=== PATIENT | female | born 1935 | race Caucasian/White ===

== ENCOUNTER → 2017-01-25 | Outpatient (CLI) | payer MEDICAID, OTHER | END | disposition home or self-care (01) | LOC: ROC 08:52 | PROVIDERS: ATTEND Radiology Radiation Oncology | DX: Z08 Encounter for follow-up examination after completed treatment for malignant neoplasm (principal); D33.3 Benign neoplasm of cranial nerves | CPT/HCPCS: 99213; G0463 ==

== ENCOUNTER 2017-12-12 09:45 | Observation (INO) | payer OTHER, MEDICAID ==
[~2017-12-12] VITALS: Ht 162.6 cm; Wt 95.6 kg
[2017-12-12] MEDS ORDERED: LIDOCAINE/PF 1%, 30ML ONE (10:31)
[2017-12-12] MEDS ORDERED: BACITRACIN ZINC OINT 500U/GM, 0.9 GM ONE (10:31)
[2017-12-12] MEDS ORDERED: MICROFIBRILLAR COLLAGEN 70X35X1 DRESSING ONE (10:31)
[2017-12-12] MEDS ORDERED: EPINEPHRINE 1 MG/ML, 1ML ONE (10:32)
[2017-12-12] MEDS ORDERED: BACITRACIN OINT 500U/GM, 15 GM ONE (10:33)
[2017-12-12] MEDS ORDERED: LOSA50TA6 PO (10:34)
[2017-12-12] MEDS ORDERED: CHOL200074 PO (10:34)
[2017-12-12] MEDS ORDERED: CHLO25TA PO (10:34)
[2017-12-12] MEDS ORDERED: LEVO75TA5 PO (10:34)
[2017-12-12] MEDS ORDERED: CYAN250013 HOMEMISC (10:34)
[2017-12-12] MEDS ORDERED: FENTANYL PF 250 MCG/5ML ONE (10:36)
[2017-12-12] MEDS ORDERED: LIDOCAINE-MPF 1%, 2ML ONE (10:40)
[2017-12-12] MEDS ORDERED: LACTATED RINGERS 1,000 ML IV SCH ×3 (10:51→21:30)
[2017-12-12] MEDS ORDERED: [UNRECOGNIZED DRUG - OTHER] PO (10:51)
[2017-12-12 10:56] VITALS: BP 149/94
[2017-12-12 11:19] LABS: ALANINE AMINOTRANSFERASE 30 U/L (12-78); ALBUMIN 3.8 g/dL (3.4-5.0); ANION GAP 9 mmol/L (5-15); CALCIUM 11.3 mg/dL (8.5-10.1); CHLORIDE 106 mmol/L (98-107)
[2017-12-12 11:21] LABS: ALKALINE PHOSPHATASE 62 U/L (45-117); BILIRUBIN,TOTAL 0.9 mg/dL (0.2-1.0); TOTAL PROTEIN 8.4 g/dL (6.4-8.2)
[2017-12-12] MEDS ORDERED: MIDAZOLAM 1 MG/ML, 2ML ONE (11:30)
[2017-12-12] MEDS ORDERED: SUCCINYLCHOLINE 20 MG/ML, 10ML ONE (12:26)
[2017-12-12] MEDS ORDERED: PROPOFOL 10 MG/ML, 20ML ONE ×2 (12:26)
[2017-12-12] MEDS ORDERED: CEFAZOLIN 1,000 MG ONE ×2 (12:26)
[2017-12-12] MEDS ORDERED: FENTANYL PF 100 MCG/2ML IV PRN (13:00)
[2017-12-12] MEDS ORDERED: MIDAZOLAM 1 MG/ML, 2ML IV PRN (13:00)
[2017-12-12] MEDS ORDERED: PROMETHAZINE 25 MG/ML, 1ML IV PRN (13:00)
[2017-12-12] MEDS ORDERED: morphine SULFATE 10 MG/ML, 1ML IV PRN (13:00)
[2017-12-12] MEDS ORDERED: PROMETHAZINE 12.5 MG SUPP PR PRN (13:00)
[2017-12-12] MEDS ORDERED: ONDANSETRON 2MG/ML, 2ML IVPush PRN (13:00)
[2017-12-12] MEDS ORDERED: LABETALOL 5MG/ML, 20ML IV PRN (13:00)
[2017-12-12] MEDS ORDERED: LORazepam 2 MG/ML, 1ML IVPush PRN (13:00)
[2017-12-12] MEDS ORDERED: EPHEDRINE 50 MG/ML, 1ML IVPush PRN (13:00)
[2017-12-12] MEDS ORDERED: FENTANYL PF 100 MCG/2ML ONE ×2 (13:09→14:06)
[2017-12-12 13:21] LABS: 10MIN %DROP IOPTH 71 %; 5MIN %DROP IOPTH 65 %; IOPTH BASELINE 516 pg/mL
[2017-12-12] MEDS ORDERED: ONDANSETRON 2MG/ML, 2ML IV PRN (15:30)
[2017-12-12] MEDS ORDERED: MORPHINE SULFATE 4 MG/ML, 1ML IV PRN (15:30)
[2017-12-12] MEDS ORDERED: ONDANSETRON ODT 4 MG PO PRN (15:30)
[2017-12-12] MEDS ORDERED: OXYcodone/APAP 5/325MG TABLET PO PRN (15:30)
[2017-12-12 19:00] VITALS: BP 104/59
[2017-12-12] MEDS ORDERED: ACETAMINOPHEN 325 MG TABLET PO PRN (21:00)
[2017-12-12] MEDS ORDERED: CEFAZOLIN PMX 1GM/50ML 50 ML IV SCH (21:00)
[2017-12-12 23:48] VITALS: BP 104/57
[2017-12-13 02:51] VITALS: BP 128/61
[2017-12-13 05:28] LABS: CALCIUM 10.2 mg/dL (8.5-10.1)
[2017-12-13] MEDS ORDERED: LEVOTHYROXINE 75 MCG TABLET PO SCH (06:00)
[2017-12-13 06:35] VITALS: BP 123/80
[2017-12-13] MEDS ORDERED: CHLORTHALIDONE 25 MG TABLET PO SCH (09:00)
[2017-12-13] MEDS ORDERED: CHOLECALCIFEROL 1,000 UNIT TABLET PO SCH (09:00)
[2017-12-13] MEDS ORDERED: CYANOCOBALAMIN 1,000 MCG TABLET PO SCH (09:00)
[2017-12-13] MEDS ORDERED: LOSARTAN 50MG TABLET PO SCH (09:00)
== END 2017-12-13 11:00 | disposition home or self-care (01) ==
LOC: OUT 09:45 → 4NOR 14:37 → INTOOBSV 14:43 → 4NOR 14:43 → OUT 15:10 → DCLOUNGE 12-13 10:42
PROVIDERS: ADMIT Otolaryngology; ATTEND Otolaryngology
DX: D35.1 Benign neoplasm of parathyroid gland (principal); E07.9 Disorder of thyroid, unspecified; E04.2 Nontoxic multinodular goiter
CPT/HCPCS: 36415; 60210; 80053; 82310; 83970; 88305; 88307; 88331; 88333; 93005; 96365; C1729; G0378; J0171; J0330; J0690; J2250; J2704; J3010; J3490; J7120

== ENCOUNTER 2018-02-19 12:03 | Day surgery (SDC) | payer OTHER, MEDICAID ==
[~2018-02-19] VITALS: Ht 162.6 cm; Wt 92.9 kg
[~2018-02-19 12:03] MED LIST: BUPIVACAINE 0.25% ONE; CHLO25TA PO; CHOL200074 PO; CYAN250013 HOMEMISC; EPINEPHRINE 1 MG/ML, 1ML ONE; LEVO75TA5 PO; LOSA50TA6 PO; NEOMY/POLYMYXIN B GU IRR. 1 ML IRRIG ONE; [UNRECOGNIZED DRUG - OTHER] PO
[2018-02-19] MEDS ORDERED: LACTATED RINGERS 1,000 ML IV SCH (12:42)
[2018-02-19] MEDS ORDERED: PLEASE ENTER HEIGHT AND WEIGHT MC SCH (13:00)
[2018-02-19] MEDS ORDERED: LIDOCAINE-MPF 1%, 2ML INFIL ONE (13:00)
[2018-02-19 13:18] VITALS: BP 151/100
[2018-02-19] MEDS ORDERED: PROPOFOL 50 ML ONE ×2 (14:04→14:40)
[2018-02-19] MEDS ORDERED: DEXAMETHASONE 4 MG/ML, 1ML ONE (14:21)
[2018-02-19] MEDS ORDERED: PROPOFOL 10 MG/ML, 20ML ONE (14:21)
[2018-02-19] MEDS ORDERED: CEFAZOLIN 1,000 MG ONE ×2 (14:21)
[2018-02-19] MEDS ORDERED: ONDANSETRON 2MG/ML, 2ML ONE ×2 (14:21)
[2018-02-19] MEDS ORDERED: FENTANYL PF 100 MCG/2ML ONE ×2 (14:21→15:09)
[2018-02-19] MEDS ORDERED: PROCHLORPERAZINE 5 MG/ML, 2ML IV PRN (15:00)
[2018-02-19] MEDS ORDERED: EPHEDRINE 50 MG/ML, 1ML IM PRN (15:00)
[2018-02-19] MEDS ORDERED: PROMETHAZINE 25 MG/ML, 1ML IV PRN (15:00)
[2018-02-19] MEDS ORDERED: DIPHENHYDRAMINE 50 MG/ML, 1ML IM PRN (15:00)
[2018-02-19] MEDS ORDERED: ONDANSETRON ODT 8 MG PO PRN (15:00)
[2018-02-19] MEDS ORDERED: MIDAZOLAM 1 MG/ML, 2ML IV PRN (15:00)
[2018-02-19] MEDS ORDERED: FENTANYL PF 100 MCG/2ML IV PRN (15:00)
[2018-02-19] MEDS ORDERED: KETOROLAC 30 MG/1 ML ONE (15:52)
[2018-02-19] MEDS ORDERED: KETOROLAC 30 MG/1 ML IVPush PRN (16:00)
== END 2018-02-19 19:15 ==
LOC: OUT 12:03
PROVIDERS: ATTEND Obstetrics & Gynecology Female Pelvic Medicine and Reconstructive Surgery
DX: N81.89 Other female genital prolapse (principal); I10 Essential (primary) hypertension; E03.9 Hypothyroidism, unspecified; Z87.39 Personal history of other diseases of the musculoskeletal system and connective tissue; Z90.710 Acquired absence of both cervix and uterus; Z98.890 Other specified postprocedural states; Z88.5 Allergy status to narcotic agent; Z88.8 Allergy status to other drugs, medicaments and biological substances; Z91.018 Allergy to other foods
CPT/HCPCS: 57265; 57282; 57288; C1771; J0171; J0690; J1100; J1885; J2405; J2704; J3010; J3490

== ENCOUNTER 2020-02-12 08:16 | Outpatient (CLI) | payer MEDICARE ==
[~2020-02-12 08:16] MED LIST changes: -BUPIVACAINE 0.25% ONE; -EPINEPHRINE 1 MG/ML, 1ML ONE; +LOSA50TA14 PO; -LOSA50TA6 PO; -NEOMY/POLYMYXIN B GU IRR. 1 ML IRRIG ONE
== END 2020-02-12 23:59 | disposition home or self-care (01) ==
LOC: ROC 08:16
PROVIDERS: ATTEND Radiology Radiation Oncology
DX: D33.3 Benign neoplasm of cranial nerves (principal)
CPT/HCPCS: 99213; G0463